=== PATIENT | female | born 1995 | race Caucasian/White ===

== ENCOUNTER 2018-01-20 15:43 | Emergency (ER) | payer OTHER ==
--- NOTE | 2018-01-21 07:44 | UC ---
- Progress Note Progress Note: LWBS. NO IMAGING Discharge - Sign-Out/Discharge Documenting (check all that apply): Post-Discharge Follow Up All imaging exams completed and their final reports reviewed: No Studies - Discharge Plan Disposition: LEFT WITHOUT BEING SEEN Referrals: Jennifer Tanner PA [Primary Care Provider] - - Billing Disposition and Condition Disposition: Left Without Being Seen
== END 2018-01-20 15:56 | disposition left against medical advice (07) ==
LOC: UCEAST 15:43
DX: Z53.21 Procedure and treatment not carried out due to patient leaving prior to being seen by health care provider (principal)

== ENCOUNTER 2018-01-20 15:56 | Emergency (ER) | payer OTHER ==
[2018-01-20 16:54] VITALS: BP 122/73
--- NOTE | 2018-01-20 16:58 | UC ---
Abdominal Pain Female HPI - HPI Summary HPI Summary: 22 yo female presents with vomiting and diarrhea. 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 She is drinking water, but tried crackers last night and vomited soon after. Denies fever, chills, sore throat, SOB, chest pain, abdominal pain, dysuria. - History of Current Complaint Chief Complaint: UCGI Stated Complaint: VOMITING,FATIGUE Time Seen by Provider: 01/20/18 16:58 Hx Obtained From: Patient Hx Last Menstrual Period: 12/10/17 Onset/Duration: Gradual Onset Severity Initially: Mild Severity Currently: Mild Pain Intensity: 3 Pain Scale Used: 0-10 Numeric Allergies/Adverse Reactions: Allergies Allergy/AdvReac Type Severity Reaction Status Date / Time No Known Allergies Allergy Verified 01/20/18 16:54 Home Medications: Home Medications Control Pill 01/20/18 [History] PMH/Surg Hx/FS Hx/Imm Hx - Additional Past Medical History Additional PMH: None - Surgical History Surgical History: Yes Surgery Procedure, Year, and Place: gallbladder removed - Family History Known Family History: Positive: None - Social History Occupation: Employed Full-time Lives: With Family Alcohol Use: None Substance Use Type: Marijuana Smoking Status (MU): Never Smoked Tobacco Review of Systems Constitutional: Negative Skin: Negative Respiratory: Negative Cardiovascular: Negative Gastrointestinal: Vomiting, Nausea Genitourinary: Negative Neurovascular: Negative Neurological: Negative Psychological: Negative All Other Systems Reviewed And Are Negative: Yes Physical Exam - Summary Physical Exam Summary: GENERAL: NAD. WDWN. No pain distress. SKIN: No rashes, sores, lesions, or open wounds. NECK: Supple. Nontender. No lymphadenopathy. CHEST: CTAB. No r/r/w. No accessory muscle use. Breathing comfortably and in no distress. CV: RRR. Without m/r/g. Pulses intact. Cap refill <2seconds ABDOMEN: Soft. NTTP. No distention or guarding. No CVA tenderness. Bowel sounds present NEURO: Alert. PSYCH: Age appropriate behavior. Triage Information Reviewed: Yes Vital Signs: Initial Vital Signs Temp 98.6 F 01/20/18 16:49 Pulse 93 01/20/18 16:49 Resp 18 01/20/18 16:49 BP 122/73 01/20/18 16:49 Pulse Ox 99 01/20/18 16:49 Vital Signs Reviewed: Yes Abd Pain Female Course/Dx - Course Course Of Treatment: Suspect gastroenteritis. Will try her with zofran and omperazole and advised to continue drinking water and advancing diet as tolerated. Go to ED if symptoms persist. - Differential Dx/Diagnosis Provider Diagnoses: Gastroenteritis Discharge - Sign-Out/Discharge Documenting (check all that apply): Patient Departure All imaging exams completed and their final reports reviewed: No Studies - Discharge Plan Condition: Stable Disposition: HOME Prescriptions: Omeprazole CAP* [Prilosec CAP* 20 MG] 20 mg PO DAILY #30 cap. Ondansetron TAB* [Zofran 4 MG Tab*] 4 mg PO Q8H PRN #15 tab PRN Reason: Nausea Patient Education Materials: Gastroenteritis (DC) Referrals: Jennifer Tanner PA [Primary Care Provider] - Additional Instructions: If you develop a fever, shortness of breath, chest pain, new or worsening symptoms - please call your PCP or go to the ED. 1) If your symptoms do not improve within 24-48 hours or if you develop new symptoms - please go to the ER. - Billing Disposition and Condition Condition: STABLE Disposition: Home
== END 2018-01-20 17:13 | disposition home or self-care (01) ==
LOC: UCCORT 15:56
DX: K52.9 Noninfective gastroenteritis and colitis, unspecified (principal); F12.90 Cannabis use, unspecified, uncomplicated
CPT/HCPCS: 99202; G0463